=== PATIENT | male | born 1980 | race Hispanic/Latino ===

== ENCOUNTER 2024-08-11 13:13 | Emergency (ER) | payer SELFPAY ==
[~2024-08-11] VITALS: Ht 167.6 cm; Wt 56.6 kg
[2024-08-11] MEDS ORDERED: BACTRIM DS1 TAB PO (14:47)
[2024-08-11] MEDS ORDERED: CEPHALEXIN500 M1 PO (14:47)
[2024-08-11 14:49] VITALS: BP 133/95
== END 2024-08-11 14:57 | disposition home or self-care (01) | DRG 395 ==
LOC: ED 13:13
DX: K62.89 Other specified diseases of anus and rectum (principal)

== ENCOUNTER 2024-08-14 19:20 | Inpatient (IN) | payer SELFPAY ==
[~2024-08-14] VITALS: Ht 167.6 cm; Wt 55.6 kg
[~2024-08-14 19:20] MED LIST: BACTRIM DS1 TAB PO; CEPHALEXIN500 M1 PO
--- NOTE | 2024-08-14 19:35 | NUR ---
PT TO ER BED 5 FOR TRIAGE AT THIS TIME WITH AN EVEN AND STEADY GAIT IN NO APPARENT DISTRESS. CALL LIGHT WITHIN REACH AND PT AWAITING MLP EXAM.
[2024-08-14] MEDS ORDERED: KETOROLAC TROMETHAMINE 15 MG/ML SDV IV ONE (19:50)
[2024-08-14 20:01] VITALS: BP 132/80
[2024-08-14 20:08] LABS: BASO% 0.3 % (0-3); EOS% 1.2 % (0-8); HEMATOCRIT 38.1 % (39.0-50.0); HEMOGLOBIN 13.6 g/dl (14.0-18.0); IMMATURE GRANULOCYTES 0.2 % (0.0-5.0); MEAN CELL VOLUME 86.6 fL CALC (80.0-100.0); MEAN CORPUSCULAR HGB 30.9 pG CALC (26.0-32.0); MEAN CORPUSCULAR HGB CONC 35.7 g/dL CAL (32.0-36.0); MONO% 10.5 % (2-13); NEUT# 4.64 thou/uL (1.82-7.42); NEUT% 78.8 % (42-76); RED BLOOD COUNT 4.4 mill/uL (4.70-6.10); RED CELL DISTRI WIDTH 12.5 % (11.5-15.5)
[2024-08-14] MEDS ORDERED: DIABETIC MED (20:15)
[2024-08-14 20:20] LABS: ALBUMIN 4.1 g/dL (3.2-5.0); BILIRUBIN, TOTAL 0.7 mg/dL (0.2-1.3); CREATININE 0.8 mg/dL (0.7-1.3); POTASSIUM 4.1 mmol/l (3.5-5.1); TOTAL PROTEIN 6.9 g/dL (6.3-8.2)
[2024-08-14 20:30] VITALS: BP 120/71
[2024-08-14] MEDS ORDERED: SODIUM CHLORIDE 0.9% 1,000 ML IV ONE (20:30)
--- NOTE | 2024-08-14 20:41 | NUR ---
PT SITTING IN RM AWAITING RESULTS AT THIS TIME. CALL LIGHT WITHIN REACH AND PT HAS NO NEEDS OR CONCERNS AT THIS TIME.
[2024-08-14] MEDS ORDERED: INSULIN REGULAR (HUMAN) 100 UNIT/ML INJ IV ONE (20:45)
[2024-08-14] MEDS ORDERED: INSULIN REGULAR (HUMAN) 100 UNIT/ML INJ SC ONE (20:45)
--- NOTE | 2024-08-14 21:44 | NUR ---
PT SITTING IN RM AWAITING RESULTS AT THIS TIME. CALL LIGHT WITHIN REACH AND PT HAS NO NEEDS OR CONCERNS AT THIS TIME.
[2024-08-14] MEDS ORDERED: Polyethylene Glycol 3350 17 GM/PKT PO PRN (21:50)
[2024-08-14] MEDS ORDERED: SODIUM CHLORIDE 0.9% 1,000 ML IV PRN (21:50)
[2024-08-14] MEDS ORDERED: IBUPROFEN 800 MG/TAB PO PRN (21:50)
[2024-08-14] MEDS ORDERED: KETOROLAC TROMETHAMINE 30 MG/ML SDV IV PRN (21:50)
[2024-08-14] MEDS ORDERED: FAMOTIDINE 10MG/ML 2ML SDV IV PRN (21:50)
[2024-08-14] MEDS ORDERED: ONDANSETRON HCl 4 MG/2 ML SDV IV PRN (21:50)
[2024-08-14] MEDS ORDERED: ALUM & MAG HYDROX-SIMETHICONE 30 ML PO PRN (21:50)
[2024-08-14] MEDS ORDERED: ONDANSETRON 4 MG/TAB ODT PO PRN (21:50)
[2024-08-14] MEDS ORDERED: MORPHINE SULFATE 4 MG/ML VIAL IV PRN (21:55)
[2024-08-14] MEDS ORDERED: DEXTROSE 250 ML IV PRN (21:55)
--- NOTE | 2024-08-14 22:48 | NUR ---
PT SITTING IN RM AWAITING ADMIT AT THIS TIME. CALL LIGHT WITHIN REACH AND PT HAS NO NEEDS OR CONCERNS AT THIS TIME.
--- NOTE | 2024-08-14 23:10 | NUR ---
REPORT GIVEN TO IMMANUEL HIGGINS AND PT TO BE TRANSPORTED TO MED SURG RM 272 SHORTLY. CALL LIGHT WITHIN REACH AND PT HAS NO NEEDS OR CONCERNS.
[2024-08-15] VITALS (11 sets, daily range): BP systolic 107–135; BP diastolic 65–85
[2024-08-15] MEDS ORDERED: PIPERACILLIN Sodium-Tazobactam 3.375 GM in SODIUM CHLORIDE 0.9% 100 ML IV SCH
[2024-08-15] MEDS ORDERED: INSULIN LISPRO 100 UNITS/ML ML SC SCH
--- NOTE | 2024-08-15 00:03 | NUR ---
Admission Note Report Given to: IMMANUEL HIGGINS Transported by: X Wheelchair Stretcher Transported with: Nurse X Transporter X Patent IV O2 Oven Technician Location: ICU X [facility]
--- NOTE | 2024-08-15 00:31 | NUR ---
PATIENT ARRIVED FROM THE ED ON A WHEELCHAIR. AMBULATED FROM WHEELCHAIR TO BED.
--- NOTE | 2024-08-15 01:37 | NUR ---
PATIENT RESTING WITH EYES CLOSED
--- NOTE | 2024-08-15 02:12 | NUR ---
PATIENT RESTING WITH EYES CLOSED
--- NOTE | 2024-08-15 03:05 | NUR ---
PATIENT RESTING WITH EYES CLOSED
--- NOTE | 2024-08-15 04:15 | NUR ---
PATIENT RESTING WITH EYES CLOSED
--- NOTE | 2024-08-15 05:02 | NUR ---
PATIENT RESTING WITH EYES CLOSED
--- NOTE | 2024-08-15 07:00 | NUR ---
REPORT RECEIVED FROM SP. PT RESTING IN BED C/O PAIN 02/17. WILL MEDICATE. IVF INFUSING. CALL LIGHT IN REACH. WILL MONITOR.
[2024-08-15] MEDS ORDERED: SODIUM CHLORIDE 1,000 ML BTL IR ONE (08:20)
[2024-08-15] MEDS ORDERED: BUPIVACAINE 133 MG/10 ML VIAL IJ ONE (08:20)
[2024-08-15] MEDS ORDERED: STERILE WATER FOR IRRIGATION 1,000 ML BTL IR ONE (08:20)
[2024-08-15] MEDS ORDERED: SODIUM CHLORIDE 20 ML/VIAL SDV ONE (08:22)
[2024-08-15] MEDS ORDERED: FAMOTIDINE 10MG/ML 2ML SDV IV ONE (08:46)
--- NOTE | 2024-08-15 09:00 | NUR ---
PT TO OR VIA BED AFTER USING TICKET CHOPPER ASSEMBLER PHONE REGARDING UPCOMING SURGERY. PT VERBALIZED AGREEMENT TO PROCEDURE. OR UPDATED.
[2024-08-15] MEDS ORDERED: SODIUM CHLORIDE 0.9% 1,000 ML IV ONE (09:01)
[2024-08-15] MEDS ORDERED: ONDANSETRON HCl 4 MG/2 ML SDV IV PRN (09:50)
[2024-08-15] MEDS ORDERED: oxyCODONE 5MG/ ACETAMINOPHEN 325MG TAB PO PRN (09:50)
[2024-08-15] MEDS ORDERED: HYDROmorphone HCL 2 MG/AMP IV PRN (09:50)
[2024-08-15] MEDS ORDERED: KETOROLAC TROMETHAMINE 15 MG/ML SDV ONE (09:54)
[2024-08-15] MEDS ORDERED: ACETAMINOPHEN 100 ML IV ONE (09:54)
--- NOTE | 2024-08-15 10:30 | NUR ---
received pt from pacu via stretcher and assisted to bed via sliding pt over. pt denies pain at the moment. dressing to rectal area cdi. ivf patent to left a/c. call light in reach. will monitor.
[2024-08-15] MEDS ORDERED: PROPOFOL 200 MG/20 ML VIAL IV ONE (10:45)
[2024-08-15] MEDS ORDERED: KETOROLAC TROMETHAMINE 15 MG/ML SDV IV SCH (12:00)
--- NOTE | 2024-08-15 12:00 | NUR ---
PT RESTING QUIETLY IN BED WITHOUT COMPLAINTS. TOLERATING PO FLUIDS. WILL MONITOR.
--- NOTE | 2024-08-15 16:25 | NUR ---
nurse notified of patient glucose is 367.
--- NOTE | 2024-08-15 18:00 | NUR ---
PT RESTED ON ANS OFF THROUGHOUT SHIFT. MEDICATED WITH FIRST DOSE OF OXYCODONE FOR PAIN. PT PAIN MANAGED WITH ORDERED TORADOL. PACKING TO RECTUM INTACT. IVF CONTINUED WITH ADEQUATE URINE OUTPUT FOR SHIFT. PT TOLERATED FOOD AND FLUIDS WELL. PT HOPING TO GO HOME TOMORROW. CALL LIGHT MAINTAINED IN REACH AND VSS.
--- NOTE | 2024-08-15 19:00 | NUR ---
RECEIVED REPORT FROM CARLOS Aponte RN. PATIENT RESTING WITH EYES OPEN EATING EVENING MEAL. REVIEWED THE PLAN OF CARE, INCLUDING WOUND CARE.
--- NOTE | 2024-08-15 20:00 | NUR ---
PATIENT RESTING WITH EYES DURING BEDSIDE ROUNDING
--- NOTE | 2024-08-15 21:00 | NUR ---
PATIENT RESTING AT BEDSIDE. WOUND CARE COMPLETED PER ORDER. PAIN MEDICATION GIVEN DURING DRESSING CHANGE. PATIENT TOLERATED DRESSING CHANGE.
--- NOTE | 2024-08-15 22:00 | NUR ---
PATIENT RESTING WITH EYES CLOSED.
--- NOTE | 2024-08-15 23:00 | NUR ---
PATIENT RESTING WITH EYES CLOSED
--- NOTE | 2024-08-16 | NUR ---
PATIENT RESTING WITH EYES CLOSED
--- NOTE | 2024-08-16 01:00 | NUR ---
PATIENT RESTING WITH EYES CLOSED
--- NOTE | 2024-08-16 02:00 | NUR ---
Patient resting with eyes closed
--- NOTE | 2024-08-16 03:00 | NUR ---
patient resting with eyes closed
[2024-08-16 04:00] VITALS: BP 109/69
--- NOTE | 2024-08-16 04:00 | NUR ---
Patient resting with eyes closed
--- NOTE | 2024-08-16 05:00 | NUR ---
patient resting with eyes closed
[2024-08-16 05:16] LABS: BASO% 0.3 % (0-3); EOS% 1.4 % (0-8); HEMATOCRIT 35.5 % (39.0-50.0); HEMOGLOBIN 12.3 g/dl (14.0-18.0); IMMATURE GRANULOCYTES 0.1 % (0.0-5.0); LYMPH% 8.3 % (15-41); MEAN CELL VOLUME 89.9 fL CALC (80.0-100.0); MEAN CORPUSCULAR HGB 31.1 pG CALC (26.0-32.0); MEAN CORPUSCULAR HGB CONC 34.6 g/dL CAL (32.0-36.0); MONO% 12.3 % (2-13); NEUT# 5.35 thou/uL (1.82-7.42); NEUT% 77.6 % (42-76); RED BLOOD COUNT 3.95 mill/uL (4.70-6.10); RED CELL DISTRI WIDTH 12.9 % (11.5-15.5)
--- NOTE | 2024-08-16 06:00 | NUR ---
Patient resting with eyes closed
--- NOTE | 2024-08-16 07:00 | NUR ---
REPORT RECEIVED FROM SP. PT RESTING AT EASE IN BED. MINIMAL C/O PAIN 3/10 AFTER MEDICATED WITH OXYCODONE. CALL LIGHT IN REACH. WILL MONITOR.
[2024-08-16 07:14] VITALS: BP 95/56
--- NOTE | 2024-08-16 10:59 | NUR ---
DR REYNOLDS ENTERED A PHYSICIAN CONSULT FOR DR KENNEDY. ADRIANE ESPINAL WAS AWARE OF THE CONSULT.
[2024-08-16] MEDS ORDERED: INSULIN LISPRO 100 UNITS/ML ML SC SCH (11:00)
[2024-08-16] MEDS ORDERED: INSULIN GLARGINE 100 UNITS/ML SC SCH (13:00)
[2024-08-16 14:55] VITALS: BP 100/59
[2024-08-16 15:26] VITALS: BP 100/59
[2024-08-16] MEDS ORDERED: metFORMIN HYDROCHLORIDE 500 MG/TAB PO SCH (17:30)
--- NOTE | 2024-08-16 18:33 | NUR ---
PT RESTED IN BED REPOSITIONING SELF THROUGHOUT THE SHIFT. VOIDED WELL IN URINAL. PAIN MANAGED WITH ORDERED TORADOL AND OXYCODONE. RECTAL DERESSING CHANGED BY DR. REYNOLDS AT BEDSIDE. TO BE TAUGHT TO SON THIS EVENING FOR DISCHARGE IN AM. DISCUSSED BLOOD SUGAR MANAGEMENT WITH PATIENT BUT WILL NEED FURTHER EDUCATIONREGARDING S& S OF HYPER AND HYPOGLYCEMIA. NEW INSULIN THIS EVENING.TOLERATING FOOD AND FLUIDS WELL. WILL MONITOR.
[2024-08-16 18:50] VITALS: BP 103/61
--- NOTE | 2024-08-16 20:30 | NUR ---
PT TOOK A SHOWER WITHOUT ANY ISSUES. NURSE CHANGED PERIANAL DRESSING WITH PT'S SON WATCHING. NURSE EDUCATED PT'S SON ON HOW TO DO THE DRESSING CHANGE. ALL QUESTIONS ANSWERED. PT REPORTS 4/10 PAIN NURSE PROVIDED PAIN MEDICATION. IV FLUSHED WITH FLUIDS ONGOING WORKING PROPERLY. CALL LIGHT WITHIN REACH. PLAN OF CARE ONGOING.
--- NOTE | 2024-08-17 00:30 | NUR ---
PT SLEEPING EASILY AROUSABLE STATING HAVING 6/10 PAIN. NURSE PROVIDED PT WITH ABX AND SCHEDULED PAIN MEDICATION. CALL LIGHT WITHIN REACH. PLAN OF CARE ONGOING.
--- NOTE | 2024-08-17 04:00 | NUR ---
PT SLEEPING NO DISTRESS NOTED BREATHING EVENLY. IF FLUIDS ONGOING WORKING PROPERLY. CALL LIGHT WITHIN REACH. PLAN OF CARE ONGOING.
[2024-08-17 04:30] VITALS: BP 98/66
[2024-08-17 06:08] LABS: CREATININE 0.5 mg/dL (0.7-1.3)
[2024-08-17 06:59] VITALS: BP 104/65
[2024-08-17] MEDS ORDERED: LEVOFLOXACIN500MG PO (08:34)
[2024-08-17] MEDS ORDERED: PERCOCET 5/325M1 TAB PO (08:34)
[2024-08-17] MEDS ORDERED: INSULIN GLARGINE 100 UNITS/ML SC SCH (09:00)
[2024-08-17 10:37] VITALS: BP 107/63
[2024-08-17] MEDS ORDERED: LANTUS100 UNIT SC (11:32)
[2024-08-17] MEDS ORDERED: METFORMIN HCL1000 MG PO (11:32)
--- NOTE | 2024-08-17 13:00 | NUR ---
PATIENT WAS DEMONSTRATED IN DANISH HOW TO USE GLUCOMETER, VERBALIZED UNDERSTANDING WITH STAFF MARGAUX HARRISON WELL. STATES HE HAS ONE AT HOME AND DIDNT HAVE STRIPS. WOUND CARE COMPLETED PER ORDER, TOLERTAED WELL. PATIENT WILL DC HOME WITH FRIEND TO PICK HIM [employer] CAR.
== END 2024-08-17 13:10 | disposition home or self-care (01) | DRG 349 ==
LOC: ED 19:20 → ED-I 19:47 → ED 21:52 → MS2 21:53
PROVIDERS: Nurse Practitioner Family; ADMIT Surgery; ATTEND Surgery
PROC: 0D9Q0ZZ Drainage of Anus, Open Approach (ICD-10-PCS; principal; 2024-08-15)
DX: K61.0 Anal abscess (principal); E13.65 Other specified diabetes mellitus with hyperglycemia; T38.3X6A Underdosing of insulin and oral hypoglycemic [antidiabetic] drugs, initial encounter; Z91.128 Patient's intentional underdosing of medication regimen for other reason
CPT/HCPCS: J0131; J0666; J1171; J1815; J1885; J2543; Q9967